=== PATIENT | female | born 1990 | race Two or more races ===

== ENCOUNTER 2017-03-15 19:25 | Emergency (ER) | payer MEDICAID ==
[~2017-03-15] VITALS: Ht 160 cm; Wt 81.6 kg
[~2017-03-15 19:25] MED LIST: HYDR-3240 PO; IBUP800T PO
[2017-03-15 19:38] VITALS: BP 129/81
== END 2017-03-15 21:17 | disposition home or self-care (01) ==
LOC: ED 20:47
DX: O9A.211 Injury, poisoning and certain other consequences of external causes complicating pregnancy, first trimester (principal); S39.012A Strain of muscle, fascia and tendon of lower back, initial encounter; V43.92XA Unspecified car occupant injured in collision with other type car in traffic accident, initial encounter; Y93.89 Activity, other specified; Y99.8 Other external cause status; Y92.89 Other specified places as the place of occurrence of the external cause
CPT/HCPCS: 99282

== ENCOUNTER 2017-07-02 22:19 | Emergency (ER) | payer MEDICAID ==
[~2017-07-02] VITALS: Ht 162.6 cm; Wt 79.5 kg
[~2017-07-02 22:19] MED LIST changes: +IBUP-1223 PO; -IBUP800T PO
[2017-07-02] MEDS ORDERED: LIDOCAINE 1%, 20ML ONE (22:38)
[2017-07-02] MEDS ORDERED: LIDOCAINE 1%, 20ML INFIL ONE (23:00)
[2017-07-02 23:03] VITALS: BP 127/75
== END 2017-07-02 23:05 | disposition home or self-care (01) ==
LOC: ED 22:30
DX: M26.622 Arthralgia of left temporomandibular joint (principal); O26.893 Other specified pregnancy related conditions, third trimester; Z3A.28 28 weeks gestation of pregnancy
CPT/HCPCS: 99282; J3490

== ENCOUNTER 2017-09-14 05:23 | Inpatient (IN) | payer MEDICAID ==
[~2017-09-14] VITALS: Ht 160 cm; Wt 82.7 kg
[2017-09-14] MEDS ORDERED: OXYTOCIN 30U/ 0.9% NaCL 500ML 500 ML IV ONE (05:37)
[2017-09-14] MEDS ORDERED: D5%-LACTATED RINGERS 1,000 ML IV SCH (05:37)
[2017-09-14] MEDS ORDERED: LACTATED RINGERS 1,000 ML IV SCH (05:37)
[2017-09-14] MEDS ORDERED: LIDOCAINE 1%, 20ML ONE (05:53)
[2017-09-14] MEDS ORDERED: MISOPROSTOL 200 MCG TABLET ONE (05:53)
[2017-09-14] MEDS ORDERED: FENTANYL PF 100 MCG/2ML ONE ×2 (05:54→07:03)
[2017-09-14] MEDS ORDERED: FENTANYL PF 100 MCG/2ML IV PRN (06:00)
[2017-09-14] MEDS ORDERED: FENTANYL PF 100 MCG/2ML IVPush PRN (06:00)
[2017-09-14 06:22] VITALS: BP 113/69
[2017-09-14 06:24] LABS: HEMATOCRIT 35.6 % (34.6-47.8); HEMOGLOBIN 11.6 g/dL (11.7-16.4)
[2017-09-14] MEDS ORDERED: IBUPROFEN 600 MG TABLET ONE (08:59)
[2017-09-14] MEDS ORDERED: OXYcodone/APAP 5/325MG TABLET ONE (08:59)
[2017-09-14] MEDS ORDERED: CARBOPROST TROMETHAMINE 250 MCG/ML, 1ML IM PRN (09:00)
[2017-09-14] MEDS ORDERED: METOCLOPRAMIDE 5 MG/ML, 2ML IV PRN (09:00)
[2017-09-14] MEDS ORDERED: BISACODYL 10 MG SUPP PR PRN (09:00)
[2017-09-14] MEDS ORDERED: METHYLERGONOVINE 0.2 MG/ML IM PRN (09:00)
[2017-09-14] MEDS ORDERED: MISOPROSTOL 200 MCG TABLET PR PRN (09:00)
[2017-09-14] MEDS ORDERED: OXYcodone/APAP 5/325MG TABLET PO PRN (09:00)
[2017-09-14] MEDS ORDERED: GLYCERIN ADULT SUPP PR PRN (09:00)
[2017-09-14] MEDS: PRENATAL VIT/IRON/FA 1 EACH TABLET PO SCH (09:00)
[2017-09-14] MEDS ORDERED: ONDANSETRON 2MG/ML, 2ML IV PRN (09:00)
[2017-09-14] MEDS ORDERED: ACETAMINOPHEN 325 MG TABLET PO PRN (09:00)
[2017-09-14] MEDS: OXYcodone/APAP 5/325MG TABLET PO PRN ×4 (09:02→22:46)
[2017-09-14] MEDS ORDERED: OXYTOCIN 30U/ 0.9% NaCL 500ML 500 ML ONE (10:26)
[2017-09-14] MEDS: OXYTOCIN 30U/ 0.9% NaCL 500ML 500 ML IV SCH ×2 (10:27→18:46)
[2017-09-14 10:50] VITALS: BP 125/76
[2017-09-14] MEDS: IBUPROFEN 800 MG TABLET PO PRN (15:04)
[2017-09-14 16:00] VITALS: BP 112/72
[2017-09-14 17:11] LABS: HEMATOCRIT 34.1 % (34.6-47.8); HEMOGLOBIN 11.2 g/dL (11.7-16.4); WHITE BLOOD COUNT 13.7 x10^3/uL (3.4-10)
[2017-09-14 20:10] VITALS: BP 119/77
[2017-09-14] MEDS: DOCUSATE 100 MG CAPSULE PO PRN (22:46)
[2017-09-15 00:20] VITALS: BP 107/75
[2017-09-15 04:30] VITALS: BP 106/73
[2017-09-15] MEDS: OXYTOCIN 30U/ 0.9% NaCL 500ML 500 ML IV SCH (04:46)
[2017-09-15] MEDS: IBUPROFEN 800 MG TABLET PO PRN ×2 (04:49→13:26)
[2017-09-15] MEDS: OXYcodone/APAP 5/325MG TABLET PO PRN ×2 (04:50→09:58)
[2017-09-15 08:30] VITALS: BP 111/71
[2017-09-15] MEDS: PRENATAL VIT/IRON/FA 1 EACH TABLET PO SCH (09:58)
[2017-09-15] MEDS: DOCUSATE 100 MG CAPSULE PO PRN (09:58)
[2017-09-15] MEDS ORDERED: OXYC-302 PO (11:57)
== END 2017-09-15 15:48 | disposition home or self-care (01) | DRG 775 ==
LOC: LDOP 05:23 → LDIP 05:39 → 2NW 10:45
PROVIDERS: ADMIT Student in an Organized Health Care Education/Training Program; ATTEND Student in an Organized Health Care Education/Training Program
PROC: 10E0XZZ Delivery of Products of Conception, External Approach (ICD-10-PCS; principal; 2017-09-14)
PROC: 10907ZC Drainage of Amniotic Fluid, Therapeutic from Products of Conception, Via Natural or Artificial Opening (ICD-10-PCS; 2017-09-14)
DX: O80 Encounter for full-term uncomplicated delivery (principal); Z37.0 Single live birth; Z3A.39 39 weeks gestation of pregnancy; Z82.49 Family history of ischemic heart disease and other diseases of the circulatory system; Z83.3 Family history of diabetes mellitus
CPT/HCPCS: 36415; 85025; 86850; 86900; J3010; J2590; J7120

== ENCOUNTER 2017-11-07 17:56 | Emergency (ER) | payer MEDICAID ==
[~2017-11-07] VITALS: Ht 162.6 cm; Wt 80.0 kg
[~2017-11-07 17:56] MED LIST changes: +OXYC-302 PO
[2017-11-07] MEDS ORDERED: KETOROLAC 30 MG/1 ML ONE (18:28)
[2017-11-07] MEDS ORDERED: KETOROLAC 30 MG/1 ML IM ONE (18:30)
[2017-11-07 18:34] VITALS: BP 114/64
[2017-11-07 18:41] LABS: BASOPHILS # (AUTO) 0.03 x10^3/uL (0-0.1); BASOPHILS % (AUTO) 0 % (0-1); EOSINOPHILS # (AUTO) 0.21 x10^3/uL (0-0.4); EOSINOPHILS % (AUTO) 3 % (1-7); LYMPHOCYTES # (AUTO) 2.28 x10^3/uL (1-3.4); LYMPHOCYTES % (AUTO) 29 % (22-44); MD NO; MEAN CORPUSCULAR HEMOGLOBIN 28.5 pg (27.0-34.8); MEAN CORPUSCULAR HGB CONC 32.5 g/dL (32.4-35.8); MEAN CORPUSCULAR VOLUME 87.7 fL (80-100); MEAN PLATELET VOLUME 9.4 fL (7.4-10.4); MONOCYTES # (AUTO) 0.46 x10^3/uL (0.2-0.8); MONOCYTES % (AUTO) 6 % (2-9); NEUTROPHILS # (AUTO) 4.97 x10^3/uL (1.8-6.8); NEUTROPHILS % (AUTO) 63 % (42-75); PLATELET COUNT 325 x10^3/uL (130-400); RED BLOOD COUNT 4.32 x10^6/uL (3.82-5.3)
[2017-11-07 18:47] LABS: MICROSCOPIC NOT IND
[2017-11-07 18:49] LABS: CULTURE INDICATED? NO
[2017-11-07 18:50] LABS: ALANINE AMINOTRANSFERASE 20 U/L (12-78); ALBUMIN 3.5 g/dL (3.4-5.0); ANION GAP 7 mmol/L (5-15); CALCIUM 8.9 mg/dL (8.5-10.1); CHLORIDE 108 mmol/L (98-107); CREATININE 1.17 mg/dL (0.55-1.02)
[2017-11-07 18:52] LABS: ALKALINE PHOSPHATASE 87 U/L (45-117); BILIRUBIN,TOTAL 0.2 mg/dL (0.2-1.0); TOTAL PROTEIN 7.5 g/dL (6.4-8.2)
== END 2017-11-07 20:04 | disposition home or self-care (01) ==
LOC: ED 19:26
DX: S39.012A Strain of muscle, fascia and tendon of lower back, initial encounter (principal); X58.XXXA Exposure to other specified factors, initial encounter; Y93.89 Activity, other specified; Y92.89 Other specified places as the place of occurrence of the external cause; Y99.8 Other external cause status
CPT/HCPCS: 36415; 72110; 80053; 81003; 85025; 96372; 99285; J1885